=== PATIENT | male | born 1945 | race Caucasian/White ===

== ENCOUNTER 2020-10-03 08:26 | Day surgery (SDC) | payer MEDICARE, MEDICAID ==
[2020-10-03] VITALS (7 sets, daily range): BP systolic 117–131; BP diastolic 59–78
[~2020-10-03] VITALS: Ht 182.9 cm; Wt 94.5 kg
[2020-10-03] MEDS ORDERED: albumin 25% 100mL bottle x 1 IV PRN (08:55)
[2020-10-03] MEDS ORDERED: METO-539 PO (09:30)
[2020-10-03] MEDS ORDERED: CLOP75TA15 PO (09:30)
[2020-10-03] MEDS ORDERED: CALCIUM CARBONATE (09:30)
[2020-10-03] MEDS ORDERED: B COMPLEX (09:30)
[2020-10-03] MEDS ORDERED: VITA-332 (09:30)
[2020-10-03] MEDS ORDERED: TRAZ-251 PO (09:30)
[2020-10-03] MEDS ORDERED: LORA-268 (09:30)
[2020-10-03] MEDS ORDERED: FURO-149 PO (09:30)
[2020-10-03] MEDS ORDERED: TEMA15CA PO (09:31)
[2020-10-03 12:31] LABS: GLUCOSE,BODY FLUID 86 MG/DL; LDH,BODY FLUID 35 U/L
[2020-10-03 12:43] LABS: TOTAL PROTEIN,BODY FLUID < 2.0 G/DL
[2020-10-03 13:19] LABS: BF RBC COUNT 155 /CU MM; BF WBC COUNT 81 /CU MM (0-1000); BFAPPEAR CLEAR; BFCOLOR STRAW; BFVOLUME 59 ML
[2020-10-03 13:53] LABS: BF MESOTHELIAL CELLS FEW; LYMPHOCYTES,BODY FLUID 63 %; MONOCYTES,BODY FLUID 21 %; NEUTROPHILS,BODY FLUID 16 %
== END 2020-10-03 11:15 | disposition home or self-care (01) ==
LOC: SSTAY O 08:26
PROVIDERS: ATTEND Radiology Diagnostic Radiology
DX: R18.8 Other ascites (principal); D64.9 Anemia, unspecified; C78.00 Secondary malignant neoplasm of unspecified lung; Z98.890 Other specified postprocedural states; Z79.899 Other long term (current) drug therapy
CPT/HCPCS: 49083; 82945; 83615; 84157; 87070; 89051; P9047

== ENCOUNTER 2020-10-03 11:29 | Emergency (ER) | payer MEDICARE, MEDICAID ==
[~2020-10-03] VITALS: Ht 182.9 cm; Wt 94.5 kg
[~2020-10-03 11:29] MED LIST: B COMPLEX; CALCIUM CARBONATE; CLOP75TA15 PO; FURO-149 PO; LORA-268; METO-539 PO; TEMA15CA PO; TRAZ-251 PO; VITA-332
[2020-10-03 12:24] LABS: BASOPHILS # (AUTO) 0.1 X10'3 (0-0.2); BASOPHILS % (AUTO) 1.8 % (0-1); EOSINOPHILS # (AUTO) 0.2 X10'3 (0-0.9); EOSINOPHILS % (AUTO) 4.8 % (0-6); HEMATOCRIT 30.9 % (42.0-52.0); HEMOGLOBIN 10.3 g/dl (14.0-17.9); LYMPHOCYTES # (AUTO) 0.5 X10'3 (1.1-4.8); LYMPHOCYTES % (AUTO) 12.2 % (21-51); MEAN CORPUSCULAR HGB CONC 33.2 g/dL (33.0-36.5); MEAN CORPUSCULAR VOLUME 96.3 FL (78-98); MONOCYTES # (AUTO) 0.5 X10'3 (0-0.9); MONOCYTES % (AUTO) 13.7 % (2-12); NEUTROPHILS # (AUTO) 2.5 X10'3 (1.8-7.7); NEUTROPHILS % (AUTO) 67.5 % (42-75); PLATELET COUNT 122 X10'3 (140-440); RED BLOOD COUNT 3.21 X10'6 (4.70-6.10); RED CELL DISTRIBUTION WIDTH 20.5 % (11.5-14.5); WHITE BLOOD COUNT 3.7 X10'3 (4.5-11.0)
[2020-10-03 12:36] LABS: ALANINE AMINOTRANSFERASE 23 U/L (12-78); ALBUMIN 2.6 G/DL (3.4-5.0); ALBUMIN/GLOBULIN RATIO 0.6 (1.1-1.5); ALKALINE PHOSPHATASE 230 IU/L (46-116); ANION GAP 6 (8-16); ASPARTATE AMINO TRANSFERASE 41 U/L (10-37); BILIRUBIN,TOTAL 1.6 MG/DL (0.1-1.0); BLOOD UREA NITROGEN 17 MG/DL (7-18); BUN/CREATININE RATIO 16.5 (5.4-32.0); CALCIUM 8.7 MG/DL (8.5-10.1); CHLORIDE 110 MMOL/L (99-107); CREATININE 1.03 MG/DL (0.60-1.10); GLUCOSE 81 MG/DL (70-104); POTASSIUM 4.3 MMOL/L (3.5-5.1); SODIUM 144 MMOL/L (135-145); TOTAL CARBON DIOXIDE 27.8 MMOL/L (24-32); TOTAL PROTEIN 6.8 G/DL (6.4-8.2); eGFR 71 ML/MIN
[2020-10-03 12:38] LABS: TROPONIN I < 0.04 NG/ML (0.0-0.05)
--- NOTE | 2020-10-03 13:32 | NUR ---
PT GIVEN JUICE AND SANDWICH, PA AWARE OF GLUCOSE. PT ALERT AND ORIENTED, REPORTS JUST NOT HAVING EATEN TODAY
[2020-10-03 13:59] VITALS: BP 109/58
[2020-10-03 14:00] LABS: ANISOCYTOSIS 3+; ELLIPTOCYTES FEW; PLATELET ESTIMATE DECREASED; SCHISTOCYTES FEW
== END 2020-10-03 14:17 | disposition home or self-care (01) ==
LOC: ER 11:29
DX: E16.2 Hypoglycemia, unspecified (principal); C34.30 Malignant neoplasm of lower lobe, unspecified bronchus or lung; K70.31 Alcoholic cirrhosis of liver with ascites; R06.02 Shortness of breath; E86.0 Dehydration; R42 Dizziness and giddiness; R53.1 Weakness; I25.10 Atherosclerotic heart disease of native coronary artery without angina pectoris; I10 Essential (primary) hypertension; F17.200 Nicotine dependence, unspecified, uncomplicated; Z85.118 Personal history of other malignant neoplasm of bronchus and lung; Z98.890 Other specified postprocedural states; Z72.89 Other problems related to lifestyle; Z79.899 Other long term (current) drug therapy
CPT/HCPCS: 36415; 71045; 80053; 82948; 84484; 85008; 85025; 93005; 99285